=== PATIENT | female | born 1950 | race Caucasian/White ===

== ENCOUNTER 2017-01-01 11:14 | Emergency (ER) | payer BC, MEDICARE ==
[~2017-01-01] VITALS: Ht 170.2 cm; Wt 77.2 kg
[~2017-01-01 11:14] MED LIST: ASCO-297 PO; ASPI-1115 PO; ASPI-558 PO; CHOL400T PO; DOCU-132 PO; DOCU-175 PO; FENO145T10 PO; ISOS60TA4 PO; LUTE20CA10 PO; METO25TA6 PO; OMEG1CAP17 PO; PANT40TA27 PO; ROSU20TA11 PO; SOLI5TAB5 PO; TRAV5DRO OP; UBIQ100C PO
[2017-01-01 11:17] VITALS: Ht 170.2 cm; Wt 77.2 kg
--- NOTE | 2017-01-01 11:52 | NUR ---
LAB AT BEDSIDE FOR BLOOD DRAW.
--- NOTE | 2017-01-01 12:14 | NUR ---
PROVIDER Jun MEDINA APRN AT BEDSIDE FOR EXAM.
--- NOTE | 2017-01-01 12:30 | NUR ---
ORTHOSTATICS PT C/O DIZZINES WHEN MOVING FROM LYING TO SITTING POSITION. VS REMAIN STABLE. PT TOLERATES ACTIVITY WELL. PROVIDER NOTIFIED OF RESULTS.
--- OUTSIDE RECORDS SUMMARY | 2017-01-01 13:01 | XMS REPORT | Referral Summary ---
Author Author [facility] Organization [facility] Address Unknown Phone Unavailable Care Team Providers Care Supervisor Tumblers Name Role Phone Nathan Dong Primary Care Physician [phone] Encounter Date(s): 06/25/15 - 06/25/15 [facility] [address] [place] [address] Discharge Diagnosis: CAD (coronary artery disease) Discharge Diagnosis: High cholesterol Discharge Diagnosis: Hypertension Discharge Diagnosis: Constipation Discharge Diagnosis: GERD (gastroesophageal reflux disease) Discharge Disposition: 01-Home or Self Care Attending Physician: Eris Dong MD Admitting Physician: Eris Dong MD Vital Signs Most recent to 1 oldest [Reference Range]: Temperature Tympanic 36.8 degC [36.6-38.1 degC] (06/25/15 9:00 AM) Peripheral Pulse 88 bpm Rate [60-100 bpm] (06/25/15 9:00 AM) Blood Pressure 112/72 mmHg [90-140/60-90 mmHg] (06/25/15 9:00 AM) Problem List Condition Effective Dates Status Health Status Informant Constipation(Confirm Active ed) CAD (coronary artery Active disease)(Confirmed) GERD Active (gastroesophageal reflux disease)(Confirmed) High Active cholesterol(Confirme d) Tobacco Active patient user(Confirmed) Urinary Active incontinence(Confirm ed) Varicose veins of Active legs(Confirmed) Allergies, Adverse Reactions, Alerts No Known Medication Allergies Medications aspirin 325 mg oral tablet 325 mg 1 tabs, Oral, Daily, 0 Refill(s) Start Date: 07/03/15 Status: Ordered Crestor 20 mg oral tablet 20 mg 1 tabs, Oral, Daily, # 90 tabs, 1 Refill(s), Pharmacy: [facility], 1 tabs Oral Daily Start Date: 05/21/15 Status: Ordered fenofibrate 145 mg oral tablet 145 mg 1 tabs, Oral, Daily, # 90 tabs, 1 Refill(s), Pharmacy: [facility], 1 tabs Oral Daily Start Date: 05/21/15 Status: Ordered isosorbide dinitrate 30 mg oral tablet 60 mg 2 tabs, Oral, Daily, 0 Refill(s) Start Date: 12/12/14 Status: Ordered Lovaza 1000 mg oral capsule 1,000 mg 1 caps, Oral, Daily, # 120 caps, 0 Refill(s) Start Date: 12/12/14 Status: Ordered lutein Oral, Daily, 0 Refill(s) Start Date: 12/12/14 Status: Ordered metoprolol tartrate 25 mg oral tablet 12.5 mg 0.5 tabs, Oral, BID, # 90 tabs, 1 Refill(s), Pharmacy: [facility] Start Date: 05/21/15 Status: Ordered [facility] Medication See Instructions, [facility] 1 tab daily, 0 Refill(s) Start Date: 12/12/14 Status: Ordered pantoprazole 40 mg oral delayed release tablet 40 mg 1 tabs, Oral, Daily, # 90 tabs, 1 Refill(s), Pharmacy: [facility], 1 tabs Oral Daily Start Date: 05/21/15 Status: Ordered Travatan Z 0.004% ophthalmic solution 1 drops, [facility], qPM, # 2.5 mL, 0 Refill(s) Start Date: 12/12/14 Status: Ordered VESIcare 5 mg oral tablet 5 mg 1 tabs, Oral, Daily, # 90 tabs, 1 Refill(s), Pharmacy: [facility], 1 tabs Oral Daily Start Date: 05/21/15 Status: Ordered Vitamin C 0 Refill(s) Start Date: 12/12/14 Status: Ordered Vitamin D3 0 Refill(s) Start Date: 12/12/14 Status: Ordered Results No data available for this section Immunizations No data available for this section Procedures Procedure Date Related Diagnosis Body Site Catheterization1 05/27/15 Colonoscopy2 1Left heart catheterization, Coronary angiography, Left Ventriculography, and PTCA of left circulflex artery. 2It was within the last 10 years and was normal. It was done at [facility]. Social History Social History Type Response Smoking Status Former smoker; Type: Cigarettes Assessment and Plan Extracted from: Title: Office Visit Note Author: Eris Dong MD Date: 06/25/15 Assessment/Plan CAD (coronary artery disease) Constipation GERD (gastroesophageal reflux disease) High cholesterol Hypertension Plan: We reviewed your cholesterol levels together. I think you're stable there. I think your current medical problems are stable other than your coronary artery disease. If you develop chest pain again you're welcome to follow-up here or call Dr. Schulz. Please carry yournitroglycerin all the time. We discussed the need for new primary care physician and next med checkup in 6 months. Prior to that appointment he should have an LDL and CMP.
--- OUTSIDE RECORDS SUMMARY | 2017-01-01 13:01 | XMS REPORT | Continuity of Care Document ---
Author Author Sharron Rapp Sharron Address Unknown Phone Unavailable Care Team Providers Care Waistline Joiner Lockstitch Name Role Phone [employer] Unavailable Unavailable Problems Problem Status Onset Date Classification Date Reported Comments Source No data available for this section Problem 01/23/2015 [facility] Medications Allergies, Adverse Reactions, Alerts Immunizations Immunization Date Given Site Status Last Updated Comments Source No data available for this section No data available for this section [facility]. Results Vital Signs Encounters Location Location Details Encounter Type Encounter Number Reason For Visit Attending Provider ADM Date DC Date Status Source [facility] [id number] Emergency [id number] Rodolfo Artis 01/18/2015 01/18/2015 Active [facility] Procedures Procedure Code Date Perfomer Comments Source hysterectomy [facility]. stents x3 10 years ago [facility] Plan of Care Social History Assessment and Plan Family History Value Date Source Advance Directives Order Name Results Value Date Source
--- OUTSIDE RECORDS SUMMARY | 2017-01-01 13:01 | XMS REPORT | Continuity of Care Document ---
Author Author [facility] Organization [facility] Address Unknown Phone Unavailable Support Name Relationship Address Phone SALENA CORMIER MD Caregiver [facility] [address] [address] Unavailable PAUL ROCK DO Caregiver [address] [place] [address] TU REYNA Next Of Kin [address] [address] Insurance Providers Payer Name Policy Number Subscriber Name Relationship [facility] [id number] Tu Reyna 01 Spouse Advance Directives Directive Response Recorded Date/Time Advanced Directives Type None 06/21/14 12:26am Ordered Resuscitation Status Full Code 06/21/14 12:17am Resuscitation Documents on File No 06/21/14 12:59am Problems No known problems or medical conditions. Medications Medication Dose Route Sig Days/Qty Instructions Order Date Discontinued Date Status Fenofibrate Nanocrystallized 145 Mg PO DAILY 11/30/10 Active Metoprolol Succinate 100 Mg PO TWICE A DAY 11/30/10 12/11/12 Discontinued Clopidogrel Bisulfate 75 Mg PO DAILY 11/30/10 12/11/12 Discontinued [place]-3 Acid Ethyl Esters 2 Cap PO TWICE A DAY 11/30/10 Active [Crestor] PO BEDTIME 11/30/10 12/11/12 Discontinued Aspirin 81 Mg PO DAILY ENTERIC COATED 11/30/10 Active [Elestrin [place]] DAILY 11/30/10 12/11/12 Discontinued Norethindrone Acetate 2.5 Mg PO DAILY 11/30/10 12/11/12 Discontinued Ranitidine Hcl 150 Mg PO NEEDED 11/30/10 12/11/12 Discontinued Rosuvastatin Calcium 20 Mg PO DAILY 12/11/12 Active Lactobacillus Rhamnosus Gg 1 Each PO DAILY 12/11/12 12/29/12 Discontinued Sennosides/Docusate Sodium 1 Tab PO DAILY 12/11/12 Active Solifenacin 5 Mg PO DAILY 12/11/12 Active Metoprolol Succinate 12.5 Mg PO TWICE A DAY 12/29/12 Active B2/Vit A,C & E/Lut/Zeaxanth/Mn 1 Tab.sa PO DAILY 08/20/13 Active Isosorbide Mononitrate 60 Mg PO DAILY 08/20/13 Active Pantoprazole Sodium 40 Mg PO DAILY 08/20/13 06/22/14 Discontinued Cyanocobalamin/Folic Acid 1 Each PO WEEKLY 08/20/13 06/20/14 Discontinued Ascorbic Acid 1,000 Mg PO DAILY 08/20/13 Active Cholecalciferol 400 Unit PO DAILY 08/20/13 Active Nitroglycerin 0.4 Mg SL Q5M PRN CHEST PAIN 1 Qty 06/22/14 Active Acetaminophen 650 Mg PO EVERY 4 HOURS PRN PAIN 30 Days TAKE NO OHTER TYLENOL PRODUCTS WHILE ON THIS 06/22/14 Active Pantoprazole Sodium 40 Mg PO TWICE A DAY 14 Days MG PO DAILY QUANTITY SUFFICIENT FOR 2 WEEKS. 06/22/14 Active Albuterol Sulfate 1-2 Puff INH EVERY 4-6 HOURS PRN SHORTNESS OF AIR/ WHEEZING 30 Days 06/22/14 Active Social History Social History Problem Response Recorded Date/Time Chewing Tobacco Status No 10/05/2013 6:19am Hx Substance Use No 06/20/2014 10:09pm Hx Alcohol Use No 06/20/2014 10:09pm Has the pt used tobacco in the last 12 months No 06/21/2014 1:00am Query Response Start Date Stop Date Smoking Status Former smoker Hospital Discharge Instructions Instructions: Care Instructions: Reason for Hospitalization: CHEST PRESSURE I was in the hospital because (patient own words): "SHORTNESS OF BREATH" AND "CHEST PRESSURE" Discharge Diet: DIET PER PRE HOSPITALIZATION Discharge Activity: ACTIVITY TOLERATED Follow Up Appointments: CALL FOR APPOINTMENT WITH DR ROCK FOR 1-2 WEEKS AT [facility]. CALL FOR AN APPOINTMENT WITH DR REYES IN 1-2 WEEKS. Notify Physician If: RETURN TO CARE IMMEDIATLY IF CHEST PAIN, CHEST TIGHTNESS, OR SHORTNESS OF AIR OCCURE Condition at time of discharge: Good Patient Instructions: see patient instructions CLINIC THROUGH THE OFFICE OR RETURN TO THE EMERGENCY DEPARTMENT FOR EMERGENT EVALUATION Wound/Incision Care: KEEP THE AREA DRY. Condition at time of discharge: Good incision is completely healed. Mepilex 1.Dressing to remain in place until your follow up appointment. 2.If this dressing starts peeling up slightly, it may be reinforced, if it peels excessively, notify your surgeon's office. 3.You may shower with the dressing in place, but do not submerge in water 4.Do not allow water to seep under the dressing, if it should seep under, remove the dressing and notify your surgeon. Notify Physician If: Call your Surgeon if you have: 1.Chest pain, difficulty breathing, fever>100.5 degrees, chills, heart rate >100, confusion, or persistent nausea/vomitting. 2.Severe pain, swelling, redness, or warmth in either of your legs. 3.During office hours, call [phone] 4. After hours, please call [facility] at [phone], and have the ink jet operator page your Surgeon IN THE EVENT OF AN EMERGENCY, seek medical care at the nearest Emergency Room Condition at time of discharge: Good Plan of Care Discharge Date 06/22/14 11:45am Disposition 01 DISCHARGED HOME, SELF-CARE Instructions/Education Provided DI for Chest Pain Prescriptions See Medications Section Functional Status Query Response Date Recorded Physical Hygiene Self June 22, 2014 11:18am Disabilities None June 22, 2014 11:18am Devices Used Dentures Glasses None June 22, 2014 11:18am Dressing Self June 22, 2014 11:18am Ambulation Self June 22, 2014 11:18am Diet Self June 22, 2014 11:18am Mental Status Alert June 22, 2014 11:18am Disabilities None June 22, 2014 11:18am Devices Used Dentures Glasses None June 22, 2014 11:18am Physical Hygiene Self June 22, 2014 11:18am Dressing Self June 22, 2014 11:18am Ambulation Self June 22, 2014 11:18am Diet Self June 22, 2014 11:18am Allergies, Adverse Reactions, Alerts Allergen Type Severity Reaction Status Last Updated Eggs Allergy Unknown Active 08/20/13 Immunizations Name Given Type Hx Influenza Vaccination Y 07/2013 Historical Hx Pneumococcal Vaccination Y Aug 2012 Historical Hx Tetanus, Diptheria, Pertussis Y Aug 2012 Historical Hx Influenza Vaccination Y 07/2013 Historical Hx Tetanus, Diptheria, Pertussis Y Aug 2012 Historical Vital Signs Acute Vital Signs Vital Response Date/Time Temperature (Fahrenheit) 99.6 deg F (96.8 - 99.1) Temperature (Calculated Celsius) 37.00893 degrees C (36.0 - 37.3) Temperature Source Temporal Pulse Rate (adult) 75 bpm (60 - 100) Respiratory Rate 16 breaths/min (10 - 20) O2 Sat by Pulse Oximetry 98 % (90 - 100) Oxygen Delivery Method Room Air Blood Pressure 127/65 mm Hg Blood Pressure Source Automatic Cuff Height (Feet) 5 feet Height (Inches) 7.00 inches Height 5 ft 7 in Weight 181 lb Body Mass Index 28.0 kg/m^2 Results Test Source Date Result Interp. Ref. Range Comments Activated Partial Thromboplast Time June 20, 2014 10:30pm 30.3 SEC N 24-36 Alanine Aminotransferase (ALT/SGPT) June 21, 2014 4:45am 33 U/L N 9 -52 Albumin June 21, 2014 4:45am 3.7 G/DL N 3.5-5.0 Albumin/Globulin Ratio June 21, 2014 4:45am 1.5 RATIO N 1.1-2.2 Alkaline Phosphatase June 21, 2014 4:45am 44 U/L N 38-126 Anion Gap June 21, 2014 4:45am 12 MEQ/L N 5-15 Anti-Nuclear Antibody (LAB) August 06, 2013 3:18pm Negative - DEX Panel, Quantitative performed at [facility] Reference Lab, [address] [place] [address] Sports Medicine Trainer Ankit Padron MD Aspartate Amino Transf (AST/SGOT) June 21, 2014 4:45am 23 U/L N 14- 36 BUN/Creatinine Ratio June 21, 2014 4:45am 15 RATIO N 6-26 Basophils # (Auto) June 21, 2014 4:45am 0.0 T/MM3 N 0-0.2 Basophils (%) (Auto) June 21, 2014 4:45am 0.6 % N 0-2 Blood Urea Nitrogen June 21, 2014 4:45am 15.0 MG/DL N 7-17 C-Reactive Protein August 06, 2013 3:18pm 7.0 MG/L N 0-9 Calcium Level June 21, 2014 4:45am 9.8 MG/DL N 8.4-10.2 Calculated Osmolality June 21, 2014 4:45am 278 MOSM/KG N 261-280 Carbon Dioxide Level June 21, 2014 4:45am 26 MEQ/L N 22-30 Chemistry Specimen Hemolysis June 21, 2014 10:46am < 15 0-25 0- 25: No Hemolysis.26-70: Slight Hemolysis - can falsely elevate K and Urine Protein. 71-285: Moderate Hemolysis - can falsely elevate K, Troponin I, CA 19-9, PTH, CSF GLucose, and Urine Protein, and can falsely decrease Phenytoin. 286-999: Gross Hemolysis - can falsely elevate K, Troponin I, CA 19-9, PTH, CSF Glucose, and Urine Protine, and can falsely decrease Phenytoin. Recommend specimen recollection. Chloride Level June 21, 2014 4:45am 106 MEQ/L N 98-107 Cholesterol Level June 21, 2014 4:45am 115 MG/DL L 132-199 Cholesterol/HDL Ratio June 21, 2014 4:45am 2.9 RATIO N 0-4.0 Conjugated Bilirubin January 15, 2014 8:30am 0.00 MG/DL N 0.00-0.30 Creatine Kinase MB June 21, 2014 4:45am 2.4 NG/ML N 0-3.4 Creatinine June 21, 2014 4:45am 1.0 MG/DL N 0.7-1.2 D-Dimer June 20, 2014 10:30pm 172 NG/ML N 0-224 <224 NG/ML= PRESUMPTIVE NEGATIVE FOR PE OR DVT>224 NG/ML=ADDITIONAL EVALUATION FOR PE OR DVT RECOMMENDED Eosinophils # (Auto) June 21, 2014 4:45am 0.2 T/MM3 N 0-0.5 Eosinophils (%) (Auto) June 21, 2014 4:45am 4.3 % H 0-4 Erythrocyte Sedimentation Rate August 06, 2013 3:18pm 8 MM/HR N 0-20 Globulin June 21, 2014 4:45am 2.5 G/DL N 2.4-3.6 Glomerular Filtration Rate Calc June 21, 2014 4:45am 56 - Glucose Level June 21, 2014 4:45am 99 MG/DL N 65-110 HDL Cholesterol Direct June 21, 2014 4:45am 39 MG/DL L 40-60 Hematocrit June 21, 2014 4:45am 37.5 % N 36-46 Hemoglobin June 21, 2014 4:45am 12.5 GM/DL N 12-16 Hepatitis C Antibody August 06, 2013 3:18pm Negative - Icterus Index June 21, 2014 4:45am < 2 0-7 Immature Granulocyte # (Auto) June 21, 2014 4:45am 0.00 T/MM3 N 0.00-0.03 Immature Granulocyte % (Auto) June 21, 2014 4:45am 0.0 % N 0.0-0.5 Influenza Type A Antigen December 11, 2012 4:36pm Negative - Negative for Flu A protein antigen. Assay sensitivity isbetween 65-83%. A negative result does not exclude influenza virus infection. "Influenza FA" may be ordered if clinical presentation warrants confirmatory testing. Influenza Type B Antigen December 11, 2012 4:36pm Negative - Negative for Flu B protein antigen. Assay sensitivity isbetween 65-83%. A negative result does not exclude influenza virus infection. "Influenza FA" may be ordered if clinical presentation warrants confirmatory testing. LDL Cholesterol, Calculated June 21, 2014 4:45am 62.4 L 66-159 Lab Scanned Report January 15, 2014 2:12pm LAB TEST FORM REQUEST [id number] - Lymphocytes # (Auto) June 21, 2014 4:45am 1.5 T/MM3 N 1-4.8 Lymphocytes (%) (Auto) June 21, 2014 4:45am 32.2 % N 23-45 Magnesium Level June 21, 2014 4:45am 1.8 MG/DL N 1.6-2.3 Mean Corpuscular Hemoglobin June 21, 2014 4:45am 29.9 UUG N 26-34 Mean Corpuscular Hemoglobin Concent June 21, 2014 4:45am 33.3 GM/DL N 31-37 Mean Corpuscular Volume June 21, 2014 4:45am 89.7 UM3 N 80-100 Mean Platelet Volume June 21, 2014 4:45am 10.2 UM3 N 9.4-12.4 Monocytes # (Auto) June 21, 2014 4:45am 0.6 T/MM3 N 0-0.8 Monocytes (%) (Auto) June 21, 2014 4:45am 12.0 % H 0-9.0 OY-Mlz-G-Type Natriuretic Peptide June 20, 2014 10:30pm 556 PG/ML H 0-175 Rule in cut points: <50 years old=450; 50-75 years old=900; >75 years old=1800; When utilizing ProBNP rule-in cut points, adjustment for impaired renal function is typically not required. Neutrophils # (Auto) June 21, 2014 4:45am 2.4 T/MM3 N 1.8-7.7 Neutrophils (%) (Auto) June 21, 2014 4:45am 50.9 % N 33-66 Phosphorus Level June 21, 2014 4:45am 4.0 MG/DL N 2.5-4.5 Platelet Count June 21, 2014 4:45am 274 T/MM3 N 130-400 Potassium Level June 21, 2014 4:45am 3.8 MEQ/L N 3.6-5 Prothromb Time International Ratio June 20, 2014 10:30pm 0.93 N 0.81-1.09 THERAPUTIC RANGE=2.00-3.00 FOR ANTI-THROMBOSIS THERAPUTIC RANGE=2.50 -3.50 FOR IMPLANTED VALVE RDW Standard Deviation June 21, 2014 4:45am 41.2 FL N 36.9-50.2 Red Blood Count June 21, 2014 4:45am 4.18 M/MM3 N 4.00-5.20 Sodium Level June 21, 2014 4:45am 144 MEQ/L N 134-144 Thyroid Stimulating Hormone (TSH) June 21, 2014 4:45am 1.63 MIU/L N 0.47-4.68 Total Bilirubin June 21, 2014 4:45am 0.30 MG/DL N 0.20-1.30 Total Creatine Kinase June 21, 2014 4:45am 110 U/L N 30-135 Total Protein June 21, 2014 4:45am 6.2 G/DL L 6.3-8.2 Triglycerides Level June 21, 2014 4:45am 68 MG/DL N 35-135 Troponin I June 21, 2014 10:46am < 0.012 ng/ml 0-0.12 Turbidity June 21, 2014 4:45am < 20 0-20 Unconjugated Bilirubin January 15, 2014 8:30am 0.10 MG/DL N 0.00-1.10 VLDL Cholesterol June 21, 2014 4:45am 13.6 MG/DL N 0-28 Vitamin B12 Level July 23, 2013 3:20pm > 1000 PG/ML H 239-931 White Blood Count June 21, 2014 4:45am 4.7 T/MM3 N 4.5-11.0 c-ANCA August 06, 2013 3:18pm 16 U/mL - Normal range for ANCA:<100 U /mL: Negative 100-120 U/mL: Indeterminate >120 U/mL: Positive ANCA performed at [facility] Reference Lab, [address] [place] [address] Sports Medicine Trainer Ankit Padron MD p-ANCA August 06, 2013 3:18pm 16 U/mL - Name: PERI REYNA Unit #: [id number] : [id number] Sex: F Loc / Svc: SRG DOS: 06/20/14 Signed Report #: [id number] DIAGNOSTIC IMAGING REPORT TYPE OF EXAM: CHEST, PA & LATERAL Dictated By: OWEN ZAPATA MD INDICATION: ITS.REASON: dyspnea CHEST 2-VIEWS UPRIGHT (PA & LAT): COMPARISON: December 29, 2012 FINDINGS: The lungs are clear without evidence of focal abnormal airspace opacity. There is no pleural effusion or pneumothorax. The heart size, mediastinal contours and pulmonary vascularity are within normal limits. There is no significant skeletal abnormality. IMPRESSION: No acute cardiopulmonary disease. . Procedures No known history of procedures. Encounters Encounter Location Date/Time Discharged Inpatient [facility] 06/21/14 12:25am
--- OUTSIDE RECORDS SUMMARY | 2017-01-01 13:01 | XMS REPORT | Referral Summary ---
Author Author [facility] Organization [facility] Address Unknown Phone Unavailable Care Team Providers Care Friction Saw Operator Name Role Phone Nathan Dong Primary Care Physician [phone] Encounter VC Date(s): 04/25/15 - 04/25/15 [facility] [address] [place] [id number] Discharge Disposition: 01-Home or Self Care Attending Physician: Eris Dong MD Admitting Physician: Eris Dong MD Vital Signs Most recent to 1 oldest [Reference Range]: Temperature Tympanic 36.4 degC [36.6-38.1 degC] *LOW* (04/25/15 2:42 PM) Blood Pressure 112/64 mmHg [90-140/60-90 mmHg] (04/25/15 2:42 PM) Problem List Condition Effective Dates Status Health [...] Daily, # 90 tabs, 1 Refill(s), [facility], 1 tabs Oral Daily Start Date: 05/21/15 Status: Ordered fenofibrate 145 mg oral tablet 145 mg 1 tabs, Oral, Daily, # 90 tabs, 1 Refill(s), Pharmacy: [facility], 1 tabs Oral Daily Start Date: 05/21/15 [...] BID, # 90 tabs, 1 Refill(s), Pharmacy: [facility] Start Date: 05/21/15 Status: Ordered Mis Medication See Instructions, [facility] 1 tab daily, 0 Refill(s) Start Date: 12/12/14 Status: Ordered pantoprazole 40 mg oral delayed release tablet 40 mg 1 tabs, Oral, Daily, # 90 tabs, 1 Refill(s), Pharmacy: [facility], 1 tabs Oral Daily Start Date: 05/21/15 Status: Ordered Travatan Z 0.004% ophthalmic solution 1 drops, Eye[facility], qPM, # 2.5 mL, 0 Refill(s) Start Date: 12/12/14 Status: Ordered VESIcare 5 mg oral tablet 5 mg 1 tabs, Oral, Daily, # 90 tabs, 1 Refill(s), Pharmacy: [facility], 1 tabs Oral Daily Start Date: 05/21/15 [...] and was normal. It was done at [facility]. Social History Social History Type Response Smoking Status Former smoker; Type: Cigarettes Assessment and Plan Extracted from: Title: Office Visit Note Author: Eris Dong MD Date: 04/25/15 Assessment/Plan Acute urticaria I think you have urticaria. I am placing you on an loratadine 10 mg one tablet a day. I am placing on a prednisone taper. Takes 60 mg the first day and then decrease by 10 mg a day for 6 days. Follow- up in 3-5 days if not improving. If you develop problems breathing or swallowing call 911. Ordered: Office Visit Level 3 Est [id number] Orders: loratadine, 10 mg 1 tabs, Oral, Daily, X 30 days, # 30 tabs, 0 Refill( s), Pharmacy: [facility] #[id number], 1 tabs Oral Daily,x30 days predniSONE, See Instructions, Take 6 tabs on day one and then decrease by one tablet daily until gone., # 21 tabs, 0 Refill(s), Pharmacy: [facility] # [id number], Take 6 tabs on day one and then decrease by one tablet daily until gone.
--- OUTSIDE RECORDS SUMMARY | 2017-01-01 13:01 | XMS REPORT | Referral Summary ---
Author Author [facility] Organization [facility] Address Unknown Phone Unavailable Care Team Providers Care Psychologist Clinical Name Role Phone Nathan Dong Primary Care Physician [phone] Encounter Date(s): 06/25/15 - 06/25/15 [facility] [address] [place] [address] Discharge Diagnosis: [...] Daily, # 90 tabs, 1 Refill(s), Pharmacy: [facility] [place], 1 tabs Oral Daily Start Date: 05/21/15 Status: Ordered fenofibrate 145 mg oral tablet 145 mg 1 tabs, Oral, Daily, # 90 tabs, 1 Refill(s), Pharmacy: [facility], 1 tabs Oral Daily Start Date: 05/21/15 [...] BID, # 90 tabs, 1 Refill(s), Pharmacy: [facility] Start Date: 05/21/15 Status: Ordered [facility] Medication See Instructions, [facility] 1 tab daily, 0 Refill(s) Start Date: 12/12/14 Status: Ordered pantoprazole 40 mg oral delayed release tablet 40 mg 1 tabs, Oral, Daily, # 90 tabs, 1 Refill(s), Pharmacy: [facility], 1 tabs Oral Daily Start Date: 05/21/15 Status: Ordered Travatan Z 0.004% ophthalmic solution 1 drops, Eye-Both, qPM, # 2.5 mL, 0 Refill(s) Start Date: 12/12/14 Status: Ordered VESIcare 5 mg oral tablet 5 mg 1 tabs, Oral, Daily, # 90 tabs, 1 Refill(s), Pharmacy: [facility], 1 tabs Oral Daily Start Date: 05/21/15 [...] and was normal. It was done at [facility]. Social History Social History Type Response Smoking [...]
--- OUTSIDE RECORDS SUMMARY | 2017-01-01 13:01 | XMS REPORT | Referral Summary ---
Author Organization Unknown Address Unknown Phone Unavailable Care Team Providers Care Radiator Specialist Name Role Phone Nathan Dong Primary Care Physician [phone] Encounter VC Date(s): 12/24/14 - 12/24/14 [facility], Jeff Family [address] [place] [id number] Discharge Diagnosis: CAD (coronary artery disease) Discharge Diagnosis: Vitamin D deficiency Discharge Diagnosis: B12 deficiency Discharge Diagnosis: Constipation Discharge Diagnosis: High cholesterol Discharge Diagnosis: Varicose veins of legs Discharge Diagnosis: Urinary incontinence Discharge Diagnosis: GERD (gastroesophageal reflux disease) Discharge Disposition: Home or Self Care Attending Physician: Eris Dong MD Admitting Physician: Eris Dong MD Referring Physician: Eris Dong MD Vital Signs Most recent to 1 oldest [Reference Range]: Temperature Tympanic 36.5 degC [36.6-38.1 degC] *LOW* (12/24/14 9:27 AM) Peripheral Pulse 66 bpm Rate [60-100 bpm] (12/24/14 9:27 AM) Respiratory Rate 14 br/min [14-20 br/min] (12/24/14 9:27 AM) Blood Pressure 112/68 mmHg [90-140/60-90 mmHg] (12/24/14 9:27 AM) Most recent to 1 oldest [Reference Range]: SpO2 98 % (12/24/14 9:27 AM) Problem List Condition Effective Dates Status Health Status Informant Constipation(Confirm Active ed) CAD (coronary artery Active disease)(Confirmed) GERD Active (gastroesophageal reflux disease)(Confirmed) High Active cholesterol(Confirme d) Tobacco Active patient user(Confirmed) Urinary Active incontinence(Confirm ed) Varicose veins of Active legs(Confirmed) Allergies, Adverse Reactions, Alerts No Known Medication Allergies Medications Aspir 81 mg, Oral, Daily, 0 Refill(s) Start Date: 12/12/14 Status: Ordered Crestor 20 mg oral tablet 1 tabs, Oral, Daily, # 90 tabs, 1 Refill(s) Start Date: 12/12/14 Status: Ordered fenofibrate 145 mg oral tablet 1 tabs, Oral, Daily, # 90 tabs, 1 Refill(s) Start Date: 12/12/14 Status: Ordered isosorbide dinitrate 30 mg oral tablet tabs, Oral, q6hr, 0 Refill(s) Start Date: 12/12/14 Status: Ordered Lovaza 1000 mg oral capsule 2 caps, Oral, BID, # 120 caps, 0 Refill(s) Start Date: 12/12/14 Status: Ordered lutein Oral, Daily, 0 Refill(s) Start Date: 12/12/14 Status: Ordered metoprolol tartrate 25 mg oral tablet 0.5 tabs, Oral, BID, # 90 tabs, 1 Refill(s) Start Date: 12/12/14 Status: Ordered Misc Medication See Instructions, [facility] 1 tab daily, 0 Refill(s) Special Instructions: [facility] 1 tab daily Start Date: 12/12/14 Status: Ordered pantoprazole 40 mg oral delayed release tablet 1 tabs, Oral, Daily, # 90 tabs, 1 Refill(s) Start Date: 12/12/14 Status: Ordered Travatan Z 0.004% ophthalmic solution 1 drops, Eye-Both, qPM, # 2.5 mL, 0 Refill(s) Start Date: 12/12/14 Status: Ordered VESIcare 5 mg oral tablet 1 tabs, Oral, Daily, # 90 tabs, 1 Refill(s) Start Date: 12/12/14 Status: Ordered Vitamin C 0 Refill(s) Start Date: 12/12/14 Status: Ordered Vitamin D3 0 Refill(s) Start Date: 12/12/14 Status: Ordered Results Hematology Most recent to 1 oldest [Reference Range]: WBC [4.8-10.8 K/uL] 5.8 K/uL (12/24/14 10:15 AM) RBC [4.00-5.20 M/uL] 4.67 M/uL (12/24/14 10:15 AM) Hgb [12.0-16.0 14.2 gm/dL gm/dL] (12/24/14 10:15 AM) Hct [37.0-47.0 %] 42.2 % (12/24/1415 AM) MCV [82.0-99.0 fL] 90.4 fL (12/24/14 AM) MCH [27.0-32.0 pg] 30.4 pg (12/24/14 AM) MCHC [32.0-36.0 33.6 gm/dL gm/dL] (12/24/14 AM) RDW [11.5-14.5 %] 13.1 % (12/24/14 AM) Platelet [150-400 311 K/uL K/uL] (12/24/14 AM) MPV [8.8-14.8 fL] 10.3 fL (12/24/14 AM) Immature 0.2 % Granulocytes (12/24/14) [0.0-1.0 %] Neutrophils [51-75 58 % %] (12/24/14 AM) Lymphocytes [20-46 22 % %] (12/24/14 AM) Monocytes [4-11 %] 12 % *HI* (12/24/14 AM) Eosinophils [0-4 %] 7 % *HI* (12/24/14 AM) Basophils [0-2 %] 1 % (12/24/1415 AM) Neutro Absolute 3.34 THOUS [1.90-7.00 THOUS] (12/24/14 AM) Lymph Absolute 1.29 THOUS [0.80-3.30 THOUS] (12/24/14:15 AM) [place] Absolute 0.67 THOUS [0.30-1.00 THOUS] (12/24/14:15 AM) Eos Absolute 0.43 THOUS [0.00-0.50 THOUS] (12/24/14: AM) Baso Absolute 0.05 THOUS [0.00-0.20 THOUS] (12/24/14:15 AM) Chemistry Most recent to 1 oldest [Reference Range]: Sodium Lvl [135-144 141 mEq/L mEq/L] (12/24/14 AM) Potassium Lvl 5.0 mEq/L [3.5-5.2 mEq/L] (12/24/14:15 AM) Chloride [99-111 106 mEq/L mEq/L] (12/24/14: AM) CO2 [22-31 mEq/L] 24 mEq/L (12/24/14:15 AM) AGAP [3-20] 11 (12/24/14:15 AM) BUN [10-20 mg/dL] 19 mg/dL (12/24/14 AM) Glucose Lvl [70-99 96 mg/dL mg/dL] (12/24/14:15 AM) Creatinine Lvl 0.90 mg/dL [0.57-1.11 mg/dL] (12/24/14 AM) eGFR [>60 mL/min] >60 mL/min 1 (12/24/14 AM) Calcium Lvl 9.9 mg/dL [8.9-10.5 mg/dL] (12/24/14 AM) Albumin Lvl [3.4-4.8 4.1 gm/dL gm/dL] (12/24/14 AM) Total Protein 6.5 gm/dL [6.2-8.1 gm/dL] (12/24/14: AM) Globulin [1.8-4.0 2.4 gm/dL gm/dL] (12/24/1415 AM) ALT [0-55 unit/L] 20 unit/L (12/24/14: AM) AST [5-34 unit/L] 22 unit/L (12/24/14 AM) Alk Phos [40-150 34 unit/L unit/L] *LOW* (12/24/14: AM) Bili Total [0.2-1.2 0.5 mg/dL mg/dL] (12/24/14 AM) Vitamin B12 Lvl 1148 pg/mL [213-816 pg/mL] *HI* (12/24/14:15 AM) Chol [0-199 mg/dL] 137 mg/dL (12/24/14:15 AM) Trig [0-149 mg/dL] 89 mg/dL (12/24/14 10:15 AM) HDL [40-84 mg/dL] 46 mg/dL (12/24/14 10:15 AM) LDL [0-130 mg/dL] 73 mg/dL (12/24/14 10:15 AM) VLDL Cholesterol 18 mg/dL [0-28 mg/dL] (12/24/14 10:15 AM) Cardiac Risk 3.0 [0.0-5.0] (12/24/14 10:15 AM) TSH with Reflex Free 1.30 T4 [0.35-4.94] (12/24/14 10:15 AM) 1Result Comment: Multiply eGFR results by 1.21 for race. Immunizations No data available for this section Procedures Procedure Date Related Diagnosis Body Site Collection of venous blood by venipuncture 12/24/14 Colonoscopy1 1It was within the last 10 years and was normal. It was done at [facility]. Social History Social History Type Response Smoking Status Former smoker; Type: Cigarettes Assessment and Plan Extracted from: Title: Office Visit Note Author: Ersi Dong MD Date: 12/24/14 Assessment/Plan B12 deficiency Ordered: Vitamin B12 Level CAD (coronary artery disease) Constipation Ordered: TSH with Reflex Free T4 GERD (gastroesophageal reflux disease) High cholesterol Ordered: Comprehensive Metabolic Panel Lipid Panel Urinary incontinence Varicose veins of legs Vitamin D deficiency Plan: I am recommending that you start on Deann lax 2 capfuls a day. As your bowels start getting looser stop the Dulcolax. If you're not improving in the next 2-3 weeks follow-up. Otherwise on a see him in 6 months for med checkup. I'm ordering lab tests: Vitamin D level, TSH, lipid panel, comp rinse of metabolic panel and B-12 level. Regarding her varicose veins you have mentioned that you aren't he had an appointment with a specialist regarding that. If you're having problems let me know. I recommended wearing compression stockings. Ordered: Vitamin D 25 Hydroxy Level
--- OUTSIDE RECORDS SUMMARY | 2017-01-01 13:02 | XMS REPORT | Continuity of Care Document ---
Author Author [facility] Organization [facility] Address Unknown Phone Unavailable Allergies Medications Problems Date Dx Coded Attending Type Code Diagnosis Diagnosed By 11/19/2013 Rashad Arnold MD Final 799.02 HYPOXEMIA 11/19/2013 Rashad Arnold MD Admitting 518.89 OTHER LUNG DISEASE NEC Procedures Results Encounters ACCT No. Visit Date/Time Discharge Status Pt. Type Provider Facility Loc./Unit Complaint [id number] 11/19/2013 08:45:00 2013 23:59:59 CLS Outpatient Rashad Arnold MD Via [facility]
--- OUTSIDE RECORDS SUMMARY | 2017-01-01 13:02 | XMS REPORT | Referral Summary ---
Author Organization Unknown Address Unknown Phone Unavailable Care Team Providers Care Hospital Intern Name Role Phone Nathan Dong Primary Care Physician [phone] Encounter VC Date(s): 12/12/14 - 12/12/14 [facility] Lezama, Jeff, Family [address] [place] [address] Discharge Disposition: Home or Self Care Attending Physician: Ersi Dong MD Admitting Physician: Eris Dong MD Vital Signs Most recent to 1 oldest [Reference Range]: Temperature Oral 36.5 degC [35.8-37.3 degC] (12/12/14 8:11 AM) Peripheral Pulse 60 bpm Rate [60-100 bpm] (12/12/14 8:11 AM) Respiratory Rate 14 br/min [14-20 br/min] (12/12/14 8:11 AM) Blood Pressure 116/72 mmHg [90-140/60-90 mmHg] (12/12/14 8:11 AM) Most recent to 1 oldest [Reference Range]: SpO2 96 % (12/12/14 8:11 AM) Problem List Condition Effective Dates Status Health Status Informant Tobacco Active patient user(Confirmed) Allergies, Adverse Reactions, Alerts No Known Medication [...] No data available for this section Procedures No data available for this section Social History Social History Type Response Smoking Status Former smoker; Type: Cigarettes Assessment and Plan No data available for this section
--- OUTSIDE RECORDS SUMMARY | 2017-01-01 13:02 | XMS REPORT | Referral Summary ---
Author Author [facility], Family Medicine Organization [facility] Address Unknown Phone Unavailable Care Team Providers Care Aircraft Structural Fitter Name Role Phone Nathan Dong Primary Care Physician [phone] Encounter Date(s): 06/25/15 - 06/25/15 [facility] Lez[facility] Newton [address] [place] [address] [place] Discharge Diagnosis: [...] Daily, # 90 tabs, 1 Refill(s), Pharmacy: [facility] [place], 1 tabs Oral Daily Start Date: 05/21/15 Status: Ordered fenofibrate 145 mg oral tablet 145 mg 1 tabs, Oral, Daily, # 90 tabs, 1 Refill(s), Pharmacy: [facility], 1 tabs Oral Daily Start Date: 05/21/15 [...] # 90 tabs, 1 Refill(s), Pharmacy: [facility] Start Date: 05/21/15 Status: Ordered [facility] Medication See Instructions, [facility] 1 tab daily, 0 Refill(s) Start Date: 12/12/14 Status: Ordered pantoprazole 40 mg oral delayed release tablet 40 mg 1 tabs, Oral, Daily, # 90 tabs, 1 Refill(s), Pharmacy: [facility], 1 tabs Oral Daily Start Date: 05/21/15 Status: Ordered Travatan Z 0.004% ophthalmic solution 1 drops, Eye-Both, qPM, # 2.5 mL, 0 Refill(s) Start Date: 12/12/14 Status: Ordered VESIcare 5 mg oral tablet 5 mg 1 tabs, Oral, Daily, # 90 tabs, 1 Refill(s), Pharmacy: [facility], 1 tabs Oral Daily Start Date: 05/21/15 [...] and was normal. It was done at [facility]. Social History Social History Type Response [...]
--- OUTSIDE RECORDS SUMMARY | 2017-01-01 13:02 | XMS REPORT | Referral Summary ---
Author Author [facility], Family Medicine Organization [facility] Address Unknown Phone Unavailable Care Team Providers Care Administrator Health Care Facility Name Role Phone Nathan Dong Primary Care Physician [phone] Encounter Date(s): 06/25/15 - 06/25/15 [facility] [place] [address] [place] [address] [place] Discharge Diagnosis: [...] Daily, # 90 tabs, 1 Refill(s), Pharmacy: [facility] [place], 1 tabs Oral Daily Start Date: 05/21/15 Status: Ordered fenofibrate 145 mg oral tablet 145 mg 1 tabs, Oral, Daily, # 90 tabs, 1 Refill(s), Pharmacy: [facility], 1 tabs Oral Daily Start Date: 05/21/15 [...] 90 tabs, 1 Refill(s), Pharmacy: [facility] Start Date: 05/21/15 Status: Ordered [facility] Medication See Instructions, [facility] 1 tab daily, 0 Refill(s) Start Date: 12/12/14 Status: Ordered pantoprazole 40 mg oral delayed release tablet 40 mg 1 tabs, Oral, Daily, # 90 tabs, 1 Refill(s), Pharmacy: [facility], 1 tabs Oral Daily Start Date: 05/21/15 Status: Ordered Travatan Z 0.004% ophthalmic solution 1 drops, Eye-Both, qPM, # 2.5 mL, 0 Refill(s) Start Date: 12/12/14 Status: Ordered VESIcare 5 mg oral tablet 5 mg 1 tabs, Oral, Daily, # 90 tabs, 1 Refill(s), Pharmacy: [facility], 1 tabs Oral Daily Start Date: 05/21/15 [...] and was normal. It was done at [facility]. Social History Social History Type Response Smoking [...]
--- OUTSIDE RECORDS SUMMARY | 2017-01-01 13:10 | XMS REPORT | Continuity of Care Document ---
Author Author Sharron Rapp Sharron Address Unknown Phone Unavailable Care Team Providers Care Gate Shear Operator Name Role Phone [employer] Unavailable Unavailable Problems Problem Status Onset Date Classification Date Reported Comments Source No data available for this section Problem 01/23/2015 [employer] Medications Allergies, Adverse Reactions, Alerts Immunizations Immunization Date Given Site Status Last Updated Comments Source No data available for this section No data available for this section [employer] Results Vital Signs Encounters Location Location Details Encounter Type Encounter Number Reason For Visit Attending Provider ADM Date DC Date Status Source [facility] [id number] Emergency [id number] Rodolfo Artis 01/18/2015 01/18/2015 Active [facility]. Procedures Procedure Code Date Perfomer Comments Source hysterectomy [employer] stents x3 10 years ago [employer] Plan of Care Social History Assessment and Plan Family History Value Date Source Advance Directives Order Name Results Value Date Source
--- OUTSIDE RECORDS SUMMARY | 2017-01-01 13:11 | XMS REPORT | Continuity of Care Document ---
Author Author [facility] Organization [facility] Address Unknown Phone Unavailable Support Name Relationship Address Phone SALENA CORMIER MD Caregiver [facility] [address] [address] Unavailable PAUL ROCK DO Caregiver [address] [place] [address] TU REYNA Next Of Kin [address], [place] [address] Insurance Providers Payer Name Policy Number Subscriber Name Relationship [facility] [id number] Tu Reyna 01 Spouse Advance Directives Directive [...] 75 Mg PO DAILY 11/30/10 12/11/12 Discontinued [place]-3 Acid Ethyl Esters 2 Cap PO TWICE A DAY 11/30/10 Active [Crestor] PO BEDTIME 11/30/10 12/11/12 Discontinued Aspirin 81 Mg PO DAILY ENTERIC COATED 11/30/10 Active [Elestrin Pattison] DAILY 11/30/10 12/11/12 Discontinued Norethindrone Acetate 2.5 [...] WITH DR ROCK FOR 1-2 WEEKS AT [facility]. CALL FOR AN APPOINTMENT WITH DR REYES [...] of your legs. 3.During office hours, call [phone] 4. After hours, please call [facility] at [phone], and have the binder folder operator page your Surgeon IN THE EVENT [...] F (96.8 - 99.1) Temperature (Calculated Celsius) 37.10190 degrees C (36.0 - 37.3) Temperature Source [...] Negative - DEX Panel, Quantitative performed at [facility], [address] [place] [address] Manager Fraud Ankit Padron MD Aspartate Amino Transf (AST/SGOT) [...] 15, 2014 2:12pm LAB TEST FORM REQUEST [id number] - Lymphocytes # (Auto) June 21, 2014 [...] 21, 2014 4:45am 12.0 % H 0-9.0 UD-Cvg-D-Type Natriuretic Peptide June 20, 2014 10:30pm 556 [...] Indeterminate >120 U/mL: Positive ANCA performed at [facility], [address] [place] [address] Manager Fraud Ankit Padron MD p-ANCA August 06, 2013 3:18pm 16 U/mL - Name: PERI REYNA Unit #: [id number] : 1950 Sex: F Loc / Svc: SRG DOS: 06/20/14 Signed Report #: [id number] DIAGNOSTIC IMAGING REPORT TYPE OF EXAM: CHEST, [...] procedures. Encounters Encounter Location Date/Time Discharged Inpatient [facility] 06/21/14 12:25am
--- OUTSIDE RECORDS SUMMARY | 2017-01-01 13:11 | XMS REPORT | Continuity of Care Document ---
Author Author [facility] Organization [facility] Address Unknown Phone Unavailable Allergies Medications Problems Date Dx Coded Attending Type Code Diagnosis Diagnosed By 11/19/2013 Rashad Arnold MD Final 799.02 HYPOXEMIA 11/19/2013 Rashad Arnold MD Admitting 518.89 OTHER LUNG DISEASE NEC Procedures Results Encounters ACCT No. Visit Date/Time Discharge Status Pt. Type Provider Facility Loc./Unit Complaint [id number] 11/19/2013 08:45:00 2013 23:59:59 CLS Outpatient Rashad Arnold MD Via [facility]
[2017-01-01] MEDS ORDERED: CALC-777 PO (13:14)
[2017-01-01] MEDS ORDERED: CA C1TAB82 PO (13:14)
--- NOTE | 2017-01-01 13:15 | ERPDOC ---
Departure Disposition Decision Date: Jan 01, 2017 Disposition Decision Time: 14:11 (ALVIN MEDINA APRN) Disposition: 01 DISCHARGED HOME, SELF-CARE Impression Impression (ALVIN MEDINA APRN) Impression: Primary Impression: Dizziness Additional Impressions: Volume depletion Atypical chest pain Severity: Moderate (ALVIN MEDINA APRN) Condition: Improved Seen By: Mid-level only (ALVIN MEDINA APRN) Referrals: RAMIREZ HERNANDEZ MD (Family) Patient Instructions: Dehydration (ED), Dizziness (ED) Problems/Meds/Labs Reviewed?: Yes Medications reviewed and manag: Yes (ALVIN MEDINA APRN) Additional Instructions: Your labs indicate you were slightly dehydrated. Your EKG and cardiac labs were normal. The medication Diamox you took after your Lasik surgery most likely caused you to have some volume depletion. Stay hydrated, drink fluids often. Follow treatment plan. If you symptoms return call your PCP or return to ED. Follow up care ordered?: Yes Mental Status: Alert, Oriented (ALVIN MEDINA APRN) HPI - Cardiac General Stated Complaint: HIGH BP Time Seen by Provider: 12:09 Source: patient (ALVIN MEDINA APRN) Time Seen by Provider: 13:06 (MAGDA MOORE DO) HPI - Cardiac General Initial Comments 66-year-old female presents to ER with complaint of dizziness, low blood pressure and chest tightness. Patient states she had Lasik done on her right eye yesterday. States before surgery her blood pressure was low with 85 over. States after surgery she went home her blood pressure was low and she felt dizzy. States she just didn't feel well. Called the pipe covering molder who did her surgery and asked that this is common after surgery which patient was told to follow with her PCP. Patient reports continued dizziness with some chest tightness that started early this morning. Patient does state that she was given "2 water pills" post Lasik. States that pipe covering molder said that that was to help reduce ocular pressure. Patient states she has been trying to drink fluids since coming home from Lasik surgery. Pain/Severity Scale: Now: 1/10 (chest tightness) Location: anterior L Aspirin Today: 81 mg x 4, provided by ED Associated Symptoms: chest pain (chest tightness), DENIES: cough, diaphoresis, fever/chills, headaches, loss of appetite, malaise, nausea/vomiting, other ( ataxia), rash, seizure, shortness of breath, syncope, weakness (VENANCIO MEDINAS A PUBLIC HEALTH PROFESSOR) Allergies: Coded Allergies: No Known Allergies (Unverified , 05/28/15) Past History Past Medical History Metabolic: hypercholesterolemia, hypertension Cardiac: CAD, MO Respiratory: COPD GI: GERD, ulcers Female: other, DENIES: renal insufficiency Neurological: DENIES: seizures Psychological: DENIES: depression (VENANCIO MEDINAS A PUBLIC HEALTH PROFESSOR) Surgical History Cardiac: cardiac cath, cardiac stent (ALVIN MEDINA PUBLIC HEALTH PROFESSOR) Family History Family PMH: FOUND: CAD (VENANCIO MEDINAS Sammy PUBLIC HEALTH PROFESSOR) Vaccines Hx Influenza Vaccination: Yes (FALL 2013) Hx Pneumococcal Vaccination: Yes (Aug 2012) Hx Tetanus, Diptheria, Pertuss: Yes (Aug 2012) (VENANCIO MEDINAS A PUBLIC HEALTH PROFESSOR) Social History Sexuality: male partner (VENANCIO MEDINAS A PUBLIC HEALTH PROFESSOR) Review of Systems Constitutional Constitutional: dizziness, DENIES: chills, fever (VENANCIO MEDINAS A PUBLIC HEALTH PROFESSOR) Eyes General: DENIES: erythema, exudate Lids/Accessories: DENIES: erythema, swelling Vision: DENIES: blurring (VENANCIO MEDINAS A PUBLIC HEALTH PROFESSOR) ENMT Ears: DENIES: pain Hearing: DENIES: hearing loss Sinuses: DENIES: congestion, rhinorrhea Mouth/Throat: DENIES: sore throat (VENANCIO MEDINAS A PUBLIC HEALTH PROFESSOR) Cardiovascular Cardiac: chest pain, see HPI, DENIES: murmur Rhythm/Rate: DENIES: palpitations (VENANCIO MEDINAS A PUBLIC HEALTH PROFESSOR) Pulmonary Respiratory: DENIES: cough, dyspnea (VENANCIO MEDINAS A PUBLIC HEALTH PROFESSOR) GI Upper Abdomen: DENIES: nausea, pain, vomiting Lower Abdomen: DENIES: diarrhea, pain (VENANCIO MEDINAS A PUBLIC HEALTH PROFESSOR) General: DENIES: dysuria, pain (VENANCIO MEDINAS A PUBLIC HEALTH PROFESSOR) Musculoskeletal General: DENIES: joint pain, pain, tenderness (VENANCIO MEDINAS A PUBLIC HEALTH PROFESSOR) Integumentary Skin: DENIES: color change, itching, rash (VENANCIO MEDINAS A PUBLIC HEALTH PROFESSOR) Neurological General: DENIES: ataxia, change in strength, numbness, paralysis/paresis ( VENANCIO MEDINAS A PUBLIC HEALTH PROFESSOR) Psychiatric Psychiatric: DENIES: anxiety, depression, nervousness (VENANCIO MEDINAS A PUBLIC HEALTH PROFESSOR) Physical Exam General General Nourishment: well nourished, well developed, no acute distress, adult General Body Habitus: well groomed (ALVIN MEDINA PUBLIC HEALTH PROFESSOR) Vitals and Pain First Documented Vital Signs Date Time Temp Pulse Resp B/P Pulse Ox O2 Delivery O2 Flow Rate FiO2 01/01/17 11:17 64 16 151/73 98 Room Air 01/01/17 15:07 97.9 (MAGDA MOORE DO) Vitals and Pain Weight: Kilograms: Height (feet): 5 Height (inches): 7.00 Triage Pain Scale: (ALVIN MEDINA PUBLIC HEALTH PROFESSOR) Eyes (brief) Eyes Brief: found: EOMI, PERRL (ALVIN MEDINA PUBLIC HEALTH PROFESSOR) ENMT (brief) ENMT Brief: FOUND: mucosa moist, NOT FOUND: nasal exudate, nasal swelling, pharnyx erythema (VENANCIO MEDINAS A PUBLIC HEALTH PROFESSOR) Neck (brief) Neck: FOUND: trachea midline, NOT FOUND: adenopathy, spasm, tenderness, thyromegaly (VENANCIO MEDINAS A PUBLIC HEALTH PROFESSOR) Respiratory (brief) Respiratory: FOUND: clear all [place], equal bilaterally, symmetrical (VENANCIO MEDINAS A PUBLIC HEALTH PROFESSOR) Cardiovascular (brief) Cardiac: FOUND: regular rate, regular rhythm Capillary Refill: <2 sec Pulses: all distal extremities, equal, strong (VENANCIO MEDINAS A PUBLIC HEALTH PROFESSOR) Abdomen (brief) Abdominal Brief: FOUND: bowel normo active x4, soft, NOT FOUND: distended, tender (VENANCIO MEDINAS A PUBLIC HEALTH PROFESSOR) Musculoskeletal (brief) Musculoskeletal Brief: NOT FOUND: deformity, tenderness (ALVIN MEDINA A PUBLIC HEALTH PROFESSOR) Integumentary (brief) Integumentary Brief: FOUND: dry, pink, warm (VENANCIO MEDINAS A PUBLIC HEALTH PROFESSOR) Neurologic (brief) Neurological Brief: FOUND: CN w/o gross def to obs, motor-no gross deficits, sensory-no gross deficits (VENANCIO MEDINAS A PUBLIC HEALTH PROFESSOR) Psychiatric (brief) Psychiatric Brief: FOUND: alert, normal affect, oriented (VENANCIO MEDINAS A PUBLIC HEALTH PROFESSOR ) Differential Diagnoses Considering: Acute MO, Anxiety/Panic, Angina, Bradycardia, Heart Block, Prolonged Qtc, Other (Dehydration) Considering: Cardiac Dysrhythmia, Orthostatic Hypotension (VENANCIO MEDINAS A PUBLIC HEALTH PROFESSOR) Progress Results/Orders Orders Procedure Category Date Status Time Normal Saline (Ns) PHA 01/01/17 Complete 14:30 Cbc W/Auto LAB 01/01/17 Complete Diff-Reflex Manual 14:46 Cmp - Comprehensive LAB 01/01/17 Complete Metabolic 14:46 Probnp LAB 01/01/17 Complete 14:46 Troponin I W LAB 01/01/17 Complete Hemolysis Index 14:46 INR LAB 01/01/17 Complete 14:46 EKG EKG 01/01/17 Taken 14:46 Chest 1 View RAD 01/01/17 Resulted 14:46 Iv Lock (Ed Only) EDM 01/01/17 Transmitted 14:46 Aspirin (Asa) PHA 01/01/17 Complete 15:00 Nitroglycerin PHA 01/01/17 Complete (Nitrostat) 15:00 Normal Saline (Ns) PHA 01/01/17 Complete 15:00 (MAGDA MOORE DO) Lab Results Laboratory Tests Test 01/01/17 12:20 White Blood Count 6.0T/MM3 Red Blood Count 4.73M/MM3 Hemoglobin 14.1GM/DL Hematocrit 42.7% Mean Corpuscular Volume 90.3UM3 Mean Corpuscular Hemoglobin 29.8UUG Mean Corpuscular Hemoglobin Concent 33.0GM/DL RDW Standard Deviation 41.8FL Platelet Count 263T/MM3 Mean Platelet Volume 10.1UM3 Immature Granulocyte % (Auto) 0.2% Neutrophils (%) (Auto) 52.6% Lymphocytes (%) (Auto) 20.9% Monocytes (%) (Auto) 7.3% Eosinophils (%) (Auto) 18.2% Basophils (%) (Auto) 0.8% Absolute Immature Granulocyte (auto 0.01T/MM3 Absolute Neutrophils (auto) 3.2T/MM3 Absolute Lymphocytes (auto) 1.3T/MM3 Absolute Monocytes (auto) 0.4T/MM3 Absolute Eosinophils (auto) 1.1T/MM3 Absolute Basophils (auto) 0.1T/MM3 Prothromb Time International Ratio 1.08 Turbidity < 20 Sodium Level 143MEQ/L Potassium Level 4.0MEQ/L Chloride Level 107MEQ/L Carbon Dioxide Level 24MEQ/L Anion Gap 12MEQ/L Blood Urea Nitrogen 25.0MG/DL Creatinine 1.3MG/DL Glomerular Filtration Rate Calc 41 BUN/Creatinine Ratio 19RATIO Glucose Level 117MG/DL Calculated Osmolality 280MOSM/KG Calcium Level 9.6MG/DL Total Bilirubin 0.50MG/DL Icterus Index < 2 Aspartate Amino Transf (AST/SGOT) 24U/L Alanine Aminotransferase (ALT/SGPT) 32U/L Alkaline Phosphatase 46U/L Troponin I < 0.012ng/ml EY-Rcr-Y-Type Natriuretic Peptide 193PG/ML Total Protein 7.0G/DL Albumin 4.0G/DL Globulin 3.0G/DL Albumin/Globulin Ratio 1.3RATIO Chemistry Specimen Hemolysis < 15 (MAGDA MOORE DO) Medications Current ED Medications Sodium Chloride (NS) 500 ml @ 0 mls/hr Q0M ONCE IV Last administered on 13:06; Start 01/01/17 at 14:30; Stop 01/01/17 at 14:31; Status DC Aspirin (ASA) 324 mg O ONCE PO Last administered on 01/01/17 12:32; Start at 15:00; Stop 01/01/17 at 15:01; Status DC Nitroglycerin 0.4 mg 0.4 mg Q5MIN PRN SL CHEST PAIN; Start 01/01/17 at 15:00; Stop 01/01/17 at 22:28; Status DC Sodium Chloride (NS) 500 ml @ 0 mls/hr Q0M ONCE IV Last administered on 14:42; Start 01/01/17 at 15:00; Stop 01/01/17 at 15:01; Status DC (MAGDA MOORE DO) Progress Progress CBC unremarkable Chemistry unremarkable except BUN 25.0 and creatinine 1.3 up from previous consistent with volume depletion. Trop <0.012 Patient was not orthostatic with positional changes but did report increased dizziness with position changes. Patient reports no longer feeling dizzy after fluids and says chest tightness has resolved as well. Patient called to find out what medication she took after surgery and she told me it was Diamox. I discussed with patient I think she was volume depleted which caused dizziness , chest tightness could be secondary to dizziness. I discussed conversation I had with Alayna Rico, treatment plan and follow up with PCP/Dr. Grady which patient verbalized understanding. (ALVIN MEDINA APRN) EKG EKG : Rate: 60-100 Rhythm: sinus Medina: normal QRS: normal Intervals: normal ST/T: normal Interpreted by: signing physician () (ALVIN MEDINA APRN) Consult/PCP Consult/PCP : Physician Contacted: Alayna Rico APRN Discussion Details Alayna Rico stopped by ED before going home and we discussed patient's HPI, PMH , labs, EKG, VS and exam findings. I told Alayna that patient appears volume depleted. I will call her after all labs and CXR back. I spoke with Alayna after patient labs, CXR and fluids were completed and that patient's dizziness and chest tightness (which was only a 1/10 had resolved. Alayna feels patient may go home and follow up with Dr. Grady as needed. (ALVIN MEDINA APRN) Xray Xray : Xray: CXR Portable (no acute cardiopulmnary findings ()) (ALVIN MEDINA APRN) ALVIN MEDINA APRN Jan 01, 2017 13:15 MAGDA MOORE DO Jan 05, 2017 06:41
[2017-01-01] MEDS ORDERED: MULT-933 PO (13:16)
--- NOTE | 2017-01-01 13:57 | NUR ---
STATUS ORDERED 500CC BOLUS COMPLETE AT THIS TIME. PT APPEARS TO BE RESTING COMFORTABLY IN CART. CURRENTLY DENIES CHEST DISCOMFORT OR DIZZINESS. DENIES NEEDS AT THIS TIME. CALL LIGHT WITHIN REACH, WILL CONTINUE TO MONITOR.
[2017-01-01] MEDS ORDERED: NORMAL SALINE 500 ML IV ONE ×2 (14:30→15:00)
[2017-01-01 14:54] LABS: HCT - HEMATOCRIT 42.7 % (36-46); HGB - HEMOGLOBIN 14.1 GM/DL (12-16); MEAN CORPUSCULAR HGB 29.8 UUG (26-34); MEAN CORPUSCULAR VOLUME 90.3 UM3 (80-100); MEAN PLATELET VOLUME 10.1 UM3 (9.4-12.4); NEUTROPHILS % (AUTO) 52.6 % (33-66); RED BLOOD COUNT 4.73 M/MM3 (4.00-5.20)
[2017-01-01 14:55] LABS: BASOPHILS # (AUTO) 0.1 T/MM3 (0-0.2); BASOPHILS % (AUTO) 0.8 % (0-2); EOSINOPHILS # (AUTO) 1.1 T/MM3 (0-0.5); EOSINOPHILS % (AUTO) 18.2 % (0-4); IMMATURE GRANULOCYTE # (AUTO) 0.01 T/MM3 (0.00-0.03); IMMATURE GRANULOCYTE % (AUTO) 0.2 % (0.0-0.5); INR 1.08 (0.76-1.04); LYMPHOCYTES # (AUTO) 1.3 T/MM3 (1-4.8); LYMPHOCYTES % (AUTO) 20.9 % (23-45); MONOCYTES # (AUTO) 0.4 T/MM3 (0-0.8); MONOCYTES % (AUTO) 7.3 % (0-9.0); NEUTROPHILS #(AUTO)-ABSOLUTE 3.2 T/MM3 (1.8-7.7)
[2017-01-01 14:56] LABS: ANION GAP 12 MEQ/L (5-15); BUN/CREATININE RATIO 19 RATIO (6-26); CHLORIDE 107 MEQ/L (98-107); CO2 - CARBON DIOXIDE 24 MEQ/L (22-30); CREATININE 1.3 MG/DL (0.7-1.2); GLOMERULAR FILTRATION RATE 41; GLUCOSE 117 MG/DL (65-110); SODIUM 143 MEQ/L (134-144)
--- NOTE | 2017-01-01 14:56 | NUR ---
PROVIDER Jun MEDINA APRN AT BEDSIDE TO SPEAK WITH PT.
[2017-01-01 14:57] LABS: ALBUMIN/GLOBULIN RATIO 1.3 RATIO (1.1-2.2); ALKALINE PHOSPHATASE 46 U/L (38-126); ALT (SGPT) 32 U/L (9-52); AST (SGOT) 24 U/L (14-36); CALCIUM 9.6 MG/DL (8.4-10.2); PROBNP 193 PG/ML (0-175)
[2017-01-01] MEDS ORDERED: ASPIRIN 81 MG CHEWABLE TABLET PO ONE (15:00)
[2017-01-01] MEDS ORDERED: NITROGLYCERIN 0.4 MG SUBLINGUAL TABLET SL PRN (15:00)
[2017-01-01 15:07] VITALS: BP 126/66; PULSE 72; RESP 16; TEMP 97.9; O2SAT 98
--- NOTE | 2017-01-01 15:07 | NUR ---
DISCHARGE WRITTEN INSTRUCTIONS REVIEWED AND SENT WITH PT. PT VERBALIZES UNDERSTANDING OF DI, DENIES QUESTIONS. CONTINUES TO DENY CHEST DISCOMFORT OR COMPLAINT AT THIS TIME. PT AMBULATES OUT OF ED WITH STEADY GAIT ACCOMP BY SPOUSE AT THIS TIME.
--- NOTE | 2017-01-02 09:18 | DI ---
Indication: ITS.REASON: chest pain PROCEDURE: CHEST 1 VIEW: Encounter: Initial Comparison: May 28, 2015 FINDINGS: The lungs are clear. There is no abnormal airspace opacity, pleural effusion or pneumothorax identified. The heart size, pulmonary vasculature and mediastinum are within normal limits. No significant skeletal abnormality is seen. IMPRESSION: No acute cardiopulmonary abnormality. .
--- NOTE | 2017-01-02 11:52 | NUR ---
Michael rios in [facility] - 01/02/17 at 2238 by [facility] AT BEDSIDE FOR BLOOD DRAW.
== END 2017-01-01 15:07 | disposition home or self-care (01) ==
LOC: ED 11:14
DX: R42 Dizziness and giddiness (principal); R07.89 Other chest pain; E86.9 Volume depletion, unspecified; I10 Essential (primary) hypertension
CPT/HCPCS: 80053; 83880; 84484; 85025; 85610; 93005